=== PATIENT | male | born 1975 | race Caucasian/White ===

== ENCOUNTER 2021-04-16 23:02 | Inpatient (IN) ==
[2021-04-16] MEDS ORDERED: GI Cocktail 40 ML EACH PO ONE (23:40)
[2021-04-16] MEDS ORDERED: Pantoprazole 40 MG VIAL IVP ONE (23:40)
[2021-04-16] MEDS ORDERED: *HR* FentaNYL (PF) 100 MCG/2 ML VIAL IVP ONE (23:41)
[2021-04-16] MEDS ORDERED: 0.9 % Sodium Chloride 1,000 ML IVC ONE (23:41)
[2021-04-16] MEDS ORDERED: Ondansetron 4 MG/2 ML VIAL IVP ONE (23:41)
[2021-04-17 00:02] LABS: Bilirubin,Urine Negative (Negative); Blood,Urine Negative (Negative); Clarity,Urine Clear (Clear); Color,Urine Yellow (Yellow); Glucose,Urine (UA) Normal (Normal); Ketones,Urine Negative (Negative); Leukocyte Esterase,Urine Negative (Negative); Nitrite,Urine Negative (Negative); PH,Urine 5.5 pH Units (5.0-8.0); Protein,Urine Negative (Neg-Trace); Specific Gravity,Urine 1.012 (1.010-1.025); Urobilinogen,Urine Normal (Normal)
[2021-04-17 00:16] LABS: Basophils # 0.1 K/mcL (0.0-0.2); Basophils % 0.6 %; Eosinophils # 0.2 K/mcL (0.0-0.6); Eosinophils % 1.7 %; Hematocrit 46.9 % (37.5-50.1); Hemoglobin 15.8 g/dL (12.9-16.9); Lymphocytes # 1.1 K/mcL (0.6-4.6); Lymphocytes % 9.7 %; Mean Corpuscular HGB Conc 33.7 g/dL (31.6-35.5); Mean Corpuscular Hemoglobin 32.8 pg (28.0-33.3); Mean Corpuscular Volume 97.5 fL (83.0-100.0); Mean Platelet Volume 10.3 fL (9.4-12.4); Monocytes # 0.7 K/mcL (0.0-1.3); Monocytes % 6.3 %; Neutrophils # 8.9 K/mcL (1.6-8.9); Platelet Count 238 K/mcL (140-400); Red Blood Count 4.81 M/mcL (4.19-5.50); Red Cell Distribution Width 12.4 % (11.5-14.5); Segmented Neutrophils % 80.7 %
[2021-04-17 00:26] LABS: Albumin 4.3 g/dL (3.5-5.7); Alkaline Phosphatase 397 Units/L (34-104); BUN/Creatinine Ratio 21 (6-26); Blood Urea Nitrogen 12 mg/dL (6-20); Calcium 9.2 mg/dL (8.6-10.3); Carbon Dioxide 23 mEq/L (23-29); Chloride 108 mEq/L (98-107); Glucose 113 mg/dL (70-105); Osmolality,Calculated 289 (280-300); Potassium 3.7 mEq/L (3.5-5.1); Sodium 139 mEq/L (136-145); eGFR For African Americans > 60 (> 60); eGFR For Non-African Americans > 60 (> 60)
[2021-04-17 00:46] LABS: Alanine Aminotransferase 474 Units/L (7-52); Albumin/Globulin Ratio 1.8 (1.1-2.2); Aspartate Amino Transferase 371 Units/L (13-39); Bilirubin,Direct 0.9 mg/dL (0.0-0.2); Bilirubin,Indirect 0.8 mg/dL (0.0-1.0); Bilirubin,Total 1.7 mg/dL (0.3-1.0); Globulin 2.4 g/dL (2.4-3.5); Lipase > 1800 Units/L (11-82); Total Protein 6.7 g/dL (6.4-8.9); Troponin I < 0.03 ng/mL (< 0.04)
[2021-04-17] MEDS: Nicotine 14 MG PATCH.TD24 TD SCH (01:16)
[2021-04-17] MEDS ORDERED: Naloxone 0.4 MG/ML INJ IVP PRN (01:43)
[2021-04-17] MEDS: Ringers Solution, Lactated 1,000 ML IVC SCH ×4 (02:31→11:06)
[2021-04-17] MEDS: *HR* HYDROmorphone (PF) 1 MG/ML SYRINGE IVP PRN ×5 (02:36→20:21)
[2021-04-17 03:37] LABS: Basophils # 0.1 K/mcL (0.0-0.2); Basophils % 0.7 %; Eosinophils # 0.1 K/mcL (0.0-0.6); Eosinophils % 0.7 %; Hematocrit 42.9 % (37.5-50.1); Hemoglobin 14.8 g/dL (12.9-16.9); Immature Granulocytes % 0.6 % (0-4); Lymphocytes # 1.2 K/mcL (0.6-4.6); Lymphocytes % 13.6 %; Mean Corpuscular HGB Conc 34.5 g/dL (31.6-35.5); Mean Corpuscular Hemoglobin 33.8 pg (28.0-33.3); Mean Corpuscular Volume 97.9 fL (83.0-100.0); Mean Platelet Volume 10.2 fL (9.4-12.4); Monocytes # 0.4 K/mcL (0.0-1.3); Monocytes % 4.8 %; Neutrophils # 6.8 K/mcL (1.6-8.9); Platelet Count 231 K/mcL (140-400); Red Blood Count 4.38 M/mcL (4.19-5.50); Red Cell Distribution Width 12.5 % (11.5-14.5); Segmented Neutrophils % 79.6 %; White Blood Count 8.5 K/mcL (4.3-11.1)
[2021-04-17 03:51] LABS: Prothrombin Time 11.9 Seconds (9.4-12.1)
[2021-04-17 04:08] LABS: Estimated Average Glucose 103 mg/dl; Hemoglobin A1C 5.2 %
[2021-04-17 04:15] LABS: Alanine Aminotransferase 416 Units/L (7-52); Albumin/Globulin Ratio 1.8 (1.1-2.2); Alkaline Phosphatase 368 Units/L (34-104); Aspartate Amino Transferase 254 Units/L (13-39); BUN/Creatinine Ratio 20 (6-26); Bilirubin,Direct 0.5 mg/dL (0.0-0.2); Bilirubin,Indirect 0.8 mg/dL (0.0-1.0); Bilirubin,Total 1.3 mg/dL (0.3-1.0); Blood Urea Nitrogen 11 mg/dL (6-20); Calcium 8.7 mg/dL (8.6-10.3); Carbon Dioxide 24 mEq/L (23-29); Chloride 109 mEq/L (98-107); Chol/HDL Ratio 2.9 (0-4.9); Cholesterol 186 mg/dL (< 200); Ethanol < 10 mg/dL (Less than 10); Globulin 2.2 g/dL (2.4-3.5); Glucose 111 mg/dL (70-105); HDL Cholesterol 65 mg/dL (40-59); LDL Cholesterol,Calculated 111 mg/dL (< 100); Lipase 1361 Units/L (11-82); Magnesium 1.9 mg/dL (1.6-2.6); Osmolality,Calculated 290 (280-300); Sodium 140 mEq/L (136-145); Total Protein 6.2 g/dL (6.4-8.9); Triglycerides 51 mg/dL (< 150); eGFR For African Americans > 60 (> 60); eGFR For Non-African Americans > 60 (> 60)
[2021-04-17 04:27] LABS: Hepatitis B Surface Antigen Nonreactive (Nonreactive)
[2021-04-17 04:55] LABS: Hepatitis C Virus Antibody Nonreactive (Nonreactive)
[2021-04-17 04:56] LABS: Hepatitis B Core IgM Nonreactive (Nonreactive)
[2021-04-17 07:43] LABS: Bilirubin,Urine Negative (Negative); Blood,Urine Negative (Negative); Clarity,Urine Clear (Clear); Color,Urine Yellow (Yellow); Glucose,Urine (UA) Normal (Normal); Ketones,Urine Negative (Negative); Leukocyte Esterase,Urine Negative (Negative); Nitrite,Urine Negative (Negative); Protein,Urine Negative (Neg-Trace); Specific Gravity,Urine 1.019 (1.010-1.025); Urobilinogen,Urine Normal (Normal)
[2021-04-17 09:42] LABS: Hepatitis A Antibody IgM Nonreactive (Nonreactive)
[2021-04-17] MEDS: Ondansetron 4 MG/2 ML VIAL IVP PRN (11:13)
[2021-04-18] MEDS: Nicotine 14 MG PATCH.TD24 TD SCH (04:14)
[2021-04-18] MEDS: *HR* HYDROmorphone (PF) 1 MG/ML SYRINGE IVP PRN ×4 (04:14→22:19)
[2021-04-18] MEDS: Ringers Solution, Lactated 1,000 ML IVC SCH ×4 (07:12→18:10)
[2021-04-18 10:24] LABS: Alanine Aminotransferase 236 Units/L (7-52); Albumin/Globulin Ratio 1.7 (1.1-2.2); Alkaline Phosphatase 304 Units/L (34-104); Aspartate Amino Transferase 52 Units/L (13-39); BUN/Creatinine Ratio 19 (6-26); Bilirubin,Total 1.5 mg/dL (0.3-1.0); Blood Urea Nitrogen 12 mg/dL (6-20); Carbon Dioxide 25 mEq/L (23-29); Chloride 102 mEq/L (98-107); Globulin 2.3 g/dL (2.4-3.5); Glucose 73 mg/dL (70-105); Lipase 175 Units/L (11-82); Osmolality,Calculated 280 (280-300); Potassium 4.2 mEq/L (3.5-5.1); Sodium 136 mEq/L (136-145); Total Protein 6.3 g/dL (6.4-8.9); eGFR For African Americans > 60 (> 60); eGFR For Non-African Americans > 60 (> 60)
[2021-04-18] MEDS: Nicotine 21 MG PATCH.TD24 TD SCH (10:28)
[2021-04-19] MEDS: *HR* HYDROmorphone (PF) 1 MG/ML SYRINGE IVP PRN ×3 (03:25→15:12)
[2021-04-19] MEDS: Ringers Solution, Lactated 1,000 ML IVC SCH ×2 (03:26→09:08)
[2021-04-19 03:38] LABS: Alanine Aminotransferase 164 Units/L (7-52); Albumin 3.8 g/dL (3.5-5.7); Albumin/Globulin Ratio 1.8 (1.1-2.2); Alkaline Phosphatase 262 Units/L (34-104); Aspartate Amino Transferase 29 Units/L (13-39); BUN/Creatinine Ratio 19 (6-26); Bilirubin,Total 0.9 mg/dL (0.3-1.0); Blood Urea Nitrogen 12 mg/dL (6-20); Calcium 8.9 mg/dL (8.6-10.3); Carbon Dioxide 26 mEq/L (23-29); Chloride 104 mEq/L (98-107); Globulin 2.1 g/dL (2.4-3.5); Glucose 80 mg/dL (70-105); Lipase 100 Units/L (11-82); Osmolality,Calculated 283 (280-300); Potassium 4.2 mEq/L (3.5-5.1); Sodium 137 mEq/L (136-145); Total Protein 5.9 g/dL (6.4-8.9); eGFR For African Americans > 60 (> 60); eGFR For Non-African Americans > 60 (> 60)
[2021-04-19] MEDS ORDERED: *HR* Midazolam HCl 2 MG/2 ML VIAL ONE (07:07)
[2021-04-19] MEDS ORDERED: *HR* FentaNYL (PF) 100 MCG/2 ML VIAL ONE (07:07)
[2021-04-19] MEDS ORDERED: *HR* Rocuronium Bromide 50 MG/5 ML VIAL ONE (07:08)
[2021-04-19] MEDS ORDERED: *HR* Propofol 200 MG/20 ML VIAL IVP ONE (07:08)
[2021-04-19] MEDS ORDERED: Lidocaine -MPF 2% 2 ML VIAL ONE (07:09)
[2021-04-19] MEDS ORDERED: Lidocaine HCL 4 ML Topical Solution (Laryng-O-Jet Kit Sterile Pak) TP ONE (07:09)
[2021-04-19] MEDS ORDERED: Promethazine 6.25 MG in Water for inj. (sterile) 20 ML IVPB PRN (08:33)
[2021-04-19] MEDS ORDERED: *HR* OxyCODONE Immed Rel 5 MG TABLET PO PRN (08:33)
[2021-04-19] MEDS ORDERED: Ondansetron 4 MG/2 ML VIAL IVP PRN (08:33)
[2021-04-19] MEDS ORDERED: *HR* HYDROmorphone PF 0.5 MG/0.5 ML SYRINGE IVP PRN (08:33)
[2021-04-19] MEDS ORDERED: Isovue-300 50ML VIAL ONE (08:53)
[2021-04-19] MEDS ORDERED: Clindamycin 600 MG/50 ML 600 MG/50 ML IV.SOLN IVPB ONE (09:39)
[2021-04-19] MEDS ORDERED: EPHEDrine 50 MG/ML VIAL ONE (09:56)
[2021-04-19] MEDS ORDERED: *HR* HYDROMORPHONE 2 MG/ML VIAL ONE (10:17)
[2021-04-19] MEDS ORDERED: Sugammadex Sodium 200 MG/2 ML VIAL IV ONE (10:37)
[2021-04-19 11:31] VITALS: BP 148/98; PULSE 83; TEMP 97; O2SAT 95
[2021-04-19] MEDS: Nicotine 21 MG PATCH.TD24 TD SCH (12:06)
[2021-04-19] MEDS: Ondansetron 4 MG/2 ML VIAL IVP PRN (12:21)
== END 2021-04-19 15:32 | disposition home or self-care (01) | DRG 418 ==
LOC: EMEROOARM 23:02 → 3BNU 23:02 → SUATTDRO 04-17 01:21 → 3BNU 04-17 02:15 → SUATTDRO 04-17 22:42
PROVIDERS: ADMIT Internal Medicine; ATTEND Registered Nurse